=== PATIENT | male | born 1990 | race African-American/Black ===

== ENCOUNTER 2019-02-06 22:20 | Emergency (ER) | payer OTHER, SELFPAY ==
[2019-02-06 22:21] VITALS: BP 129/74; PULSE 89; RESP 16; TEMP 36.8; O2SAT 96; BMI 31.1
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
[2019-02-06] MEDS: Ibuprofen 200 MG Tablet 400 MG PO (22:45)
== END 2019-02-06 23:13 | disposition home or self-care (01) ==
LOC: ED 23:02
PROVIDERS: Emergency Provider Emergency Medicine
DX: S80.11XA Contusion of right lower leg, initial encounter (principal); W50.1XXA Accidental kick by another person, initial encounter; Y93.89 Activity, other specified; Y92.9 Unspecified place or not applicable; Y99.0 Civilian activity done for income or pay
CPT/HCPCS: 99283